=== PATIENT | male | born 1950 | race Caucasian/White ===

== ENCOUNTER 2018-10-20 12:42 | Inpatient (IN) | payer MEDICARE, MEDICAID ==
[~2018-10-20] VITALS: Ht 172.7 cm; Wt 124.9 kg
[~2018-10-20 12:42] MED LIST: AMOX/K CLAV875 M1 PO; AMOXICILLIN500 MG PO; ASPIRIN EC81 MG PO; FLEXERIL5 M1 PO; GABAPENTIN300 MG PO; GLIPIZIDE5 MG PO; LEVAQUIN750 MG PO; LIPITOR10 MG PO; LORTAB 10-325 M1 TAB PO; LOTENSIN10 MG PO; LOTENSIN20 MG OR; NAPROSYN500 MG OR; PROCARDIA XL30 MG PO; ULTRAM50 M1 PO; ULTRAM50 MG PO
[2018-10-20] MEDS ORDERED: NIFEDIPINE30 MG PO (12:54)
[2018-10-20] MEDS ORDERED: DIGOXIN0.125 MG PO (12:54)
[2018-10-20] MEDS ORDERED: METOPROL TAR25 MG PO (12:55)
[2018-10-20] MEDS ORDERED: ELIQUIS5 MG PO (12:55)
[2018-10-20] MEDS ORDERED: LYRICA25 MG PO (12:55)
[2018-10-20 13:16] LABS: IMMATURE GRANULOCYTES 1.3 % (0.0-5.0); MEAN CELL VOLUME 91.3 fL CALC (80.0-100.0); MEAN CORPUSCULAR HGB 30.8 pG CALC (26.0-32.0); MEAN CORPUSCULAR HGB CONC 33.7 g/L CALC (32.0-36.0); NEUT# 8.04 thou/uL (1.82-7.42); RED BLOOD COUNT 4.03 mill/uL (4.70-6.10); RED CELL DISTRI WIDTH 13.4 % (11.5-15.5)
[2018-10-20 13:30] LABS: ALBUMIN 3.8 g/dL (3.2-5.0); BILIRUBIN, TOTAL 0.8 mg/dL (0.0-1.4); TOTAL PROTEIN 7.5 g/dL (6.3-8.2)
[2018-10-20 13:38] LABS: CREATININE 2.2 mg/dL (0.7-1.3); HEMATOCRIT 36.8 % (39.0-50.0); HEMOGLOBIN 12.4 g/dl (14.0-18.0); POTASSIUM 5.2 mmol/l (3.5-5.1)
[2018-10-20 13:40] LABS: INFLUENZA A NONE DETECTED (NONE DETECT); INFLUENZA B NONE DETECTED (NONE DETECT)
[2018-10-20 13:42] LABS: URINE BILIRUBIN - DIPSTICK NEGATIVE (NEGATIVE); URINE BLOOD DIPSTICK SMALL (NEGATIVE); URINE COLOR YELLOW; URINE GLUCOSE - DIPSTICK NEGATIVE (NEGATIVE); URINE KETONE NEGATIVE (NEGATIVE); URINE PROTEIN - DIPSTICK 30 mg/dL (NEG-TRACE)
[2018-10-20 13:43] LABS: URINE CLARITY HAZY; URINE LEUK ESTERASE SMALL (NEGATIVE); URINE NITRITE - DIPSTICK POSITIVE (Negative)
[2018-10-20 13:44] LABS: URINE EPITHELIAL CELLS FEW EPI/hpf (0-FEW)
[2018-10-20 13:45] LABS: URINE BACTERIA MANY hpf
[2018-10-20 14:13] LABS: BARBITURATES NEGATIVE (NEGATIVE); COCAINE NEGATIVE (NEGATIVE); METHADONE NEGATIVE (NEGATIVE); OXCYCODONE NEGATIVE (NEGATIVE); TETRAHYDROCANNABIONOL NEGATIVE (NEGATIVE); TRICYLIC ANTIDEPRESSANTS NEGATIVE (NEGATIVE)
[2018-10-20 15:24] VITALS: BP 106/61
[2018-10-20 19:14] VITALS: BP 90/62
[2018-10-21] VITALS (7 sets, daily range): BP systolic 84–112; BP diastolic 40–71
[2018-10-21 05:10] LABS: HEMATOCRIT 34.3 % (39.0-50.0); MEAN CELL VOLUME 94.5 fL CALC (80.0-100.0); MEAN CORPUSCULAR HGB 30.3 pG CALC (26.0-32.0); MEAN CORPUSCULAR HGB CONC 32.1 g/L CALC (32.0-36.0); NEUT# 6.9 thou/uL (1.82-7.42); RED BLOOD COUNT 3.63 mill/uL (4.70-6.10); RED CELL DISTRI WIDTH 13.9 % (11.5-15.5)
[2018-10-21 05:22] LABS: BILIRUBIN, TOTAL 0.5 mg/dL (0.0-1.4); CREATININE 2.3 mg/dL (0.7-1.3)
[2018-10-21 05:28] LABS: ALBUMIN 2.9 g/dL (3.2-5.0); POTASSIUM 5.6 mmol/l (3.5-5.1); TOTAL PROTEIN 5.9 g/dL (6.3-8.2)
[2018-10-21 21:50] LABS: POTASSIUM 4.8 mmol/l (3.5-5.1)
[2018-10-22 00:23] VITALS: BP 115/71
[2018-10-22 05:02] VITALS: BP 95/57
[2018-10-22 06:46] LABS: HEMATOCRIT 30.6 % (39.0-50.0); HEMOGLOBIN 10.1 g/dl (14.0-18.0); IMMATURE GRANULOCYTES 0.9 % (0.0-5.0); MEAN CELL VOLUME 93.9 fL CALC (80.0-100.0); NEUT# 2.37 thou/uL (1.82-7.42); RED BLOOD COUNT 3.26 mill/uL (4.70-6.10); RED CELL DISTRI WIDTH 13.8 % (11.5-15.5)
[2018-10-22 06:53] LABS: CREATININE 1.6 mg/dL (0.7-1.3); POTASSIUM 4.8 mmol/l (3.5-5.1)
[2018-10-22 08:00] VITALS: BP 82/45
[2018-10-22 15:58] VITALS: BP 111/62
[2018-10-22 20:05] VITALS: BP 128/66
[2018-10-23] VITALS (7 sets, daily range): BP systolic 107–165; BP diastolic 58–82
[2018-10-23 05:00] LABS: HEMATOCRIT 34.6 % (39.0-50.0); HEMOGLOBIN 11.2 g/dl (14.0-18.0); IMMATURE GRANULOCYTES 0.9 % (0.0-5.0); MEAN CELL VOLUME 94.3 fL CALC (80.0-100.0); MEAN CORPUSCULAR HGB 30.5 pG CALC (26.0-32.0); MEAN CORPUSCULAR HGB CONC 32.4 g/L CALC (32.0-36.0); NEUT# 3.37 thou/uL (1.82-7.42); RED BLOOD COUNT 3.67 mill/uL (4.70-6.10); RED CELL DISTRI WIDTH 13.5 % (11.5-15.5)
[2018-10-23 05:12] LABS: ANION GAP 10 (6-22 (CALC)); BUN 20 mg/dL (8-23); BUN/CREATININE RATIO 15 (12-20 (CALC)); CARBON DIOXIDE 24 mmol/l (22-30); CHLORIDE 109 mmol/l (95-108); CREATININE 1.3 mg/dL (0.7-1.3); GFR 55 ML/MIN (>=60 (CALC)); GFR FOR AFR.AMER. > 60 ML/MIN (>=60 (CALC)); POTASSIUM 4.9 mmol/l (3.5-5.1); SODIUM 138 mmol/l (137-146)
[2018-10-24 00:36] VITALS: BP 120/64
[2018-10-24 05:31] VITALS: BP 122/63
[2018-10-24 09:13] VITALS: BP 132/86
[2018-10-24 11:00] VITALS: BP 138/83
[2018-10-24 15:36] VITALS: BP 125/65
[2018-10-24 19:58] VITALS: BP 126/67
[2018-10-25] VITALS: BP 124/73
[2018-10-25 05:31] VITALS: BP 120/64
[2018-10-25 05:32] LABS: HEMATOCRIT 32.3 % (39.0-50.0); HEMOGLOBIN 10.4 g/dl (14.0-18.0); IMMATURE GRANULOCYTES 0.8 % (0.0-5.0); MEAN CELL VOLUME 94.2 fL CALC (80.0-100.0); MEAN CORPUSCULAR HGB 30.3 pG CALC (26.0-32.0); MEAN CORPUSCULAR HGB CONC 32.2 g/L CALC (32.0-36.0); NEUT# 4.21 thou/uL (1.82-7.42); RED BLOOD COUNT 3.43 mill/uL (4.70-6.10); RED CELL DISTRI WIDTH 13.2 % (11.5-15.5)
[2018-10-25 05:59] LABS: ANION GAP 10 (6-22 (CALC)); BUN 12 mg/dL (8-23); BUN/CREATININE RATIO 12 (12-20 (CALC)); CARBON DIOXIDE 26 mmol/l (22-30); CHLORIDE 108 mmol/l (95-108); GFR > 60 ML/MIN (>=60 (CALC)); GFR FOR AFR.AMER. > 60 ML/MIN (>=60 (CALC)); MAGNESIUM 1.7 mg/dL (1.6-2.3); POTASSIUM 4.9 mmol/l (3.5-5.1); SODIUM 138 mmol/l (137-146)
[2018-10-25 08:10] VITALS: BP 151/67
[2018-10-25 11:00] VITALS: BP 136/67
[2018-10-25 16:10] VITALS: BP 131/59
[2018-10-25 19:59] VITALS: BP 124/53
[2018-10-26 00:10] VITALS: BP 107/55
[2018-10-26 05:06] VITALS: BP 139/74
[2018-10-26 05:18] LABS: HEMATOCRIT 34.4 % (39.0-50.0); HEMOGLOBIN 11.5 g/dl (14.0-18.0); IMMATURE GRANULOCYTES 0.6 % (0.0-5.0); MEAN CELL VOLUME 92.2 fL CALC (80.0-100.0); MEAN CORPUSCULAR HGB 30.8 pG CALC (26.0-32.0); MEAN CORPUSCULAR HGB CONC 33.4 g/L CALC (32.0-36.0); NEUT# 5.73 thou/uL (1.82-7.42); RED BLOOD COUNT 3.73 mill/uL (4.70-6.10)
[2018-10-26 05:39] LABS: ALKALINE PHOSPHATASE 72 u/l (38-126); ANION GAP 11 (6-22 (CALC)); BILIRUBIN, TOTAL 0.3 mg/dL (0.0-1.4); BUN 13 mg/dL (8-23); BUN/CREATININE RATIO 12 (12-20 (CALC)); CARBON DIOXIDE 28 mmol/l (22-30); CHLORIDE 105 mmol/l (95-108); CREATININE 1.1 mg/dL (0.7-1.3); GFR > 60 ML/MIN (>=60 (CALC)); GFR FOR AFR.AMER. > 60 ML/MIN (>=60 (CALC)); MAGNESIUM 1.6 mg/dL (1.6-2.3); SGOT/AST 27 u/l (19-48); SODIUM 140 mmol/l (137-146); TOTAL PROTEIN 6.3 g/dL (6.3-8.2)
[2018-10-26 08:11] VITALS: BP 140/63
[2018-10-26 11:25] VITALS: BP 126/61
[2018-10-26] MEDS ORDERED: IPRATROPIU0.5 MG/3 M IN (12:42)
[2018-10-26] MEDS ORDERED: PANTOPRAZOLE SO40 M1 PO (12:42)
[2018-10-26] MEDS ORDERED: ROCEPHIN 2 GM2 GM IV (12:44)
== END 2018-10-26 15:23 | DRG 871 ==
LOC: ED 12:42 → ED-I 14:00 → ED 14:16 → MS2 14:17
PROVIDERS: Emergency Medicine; Internal Medicine Nephrology; Nurse Practitioner Family; ADMIT Internal Medicine; ATTEND Internal Medicine
DX: A41.51 Sepsis due to Escherichia coli [E. coli] (principal); J18.9 Pneumonia, unspecified organism; J44.1 Chronic obstructive pulmonary disease with (acute) exacerbation; N39.0 Urinary tract infection, site not specified; N17.9 Acute kidney failure, unspecified; Z68.41 Body mass index [BMI] 40.0-44.9, adult; E87.1 Hypo-osmolality and hyponatremia; J44.0 Chronic obstructive pulmonary disease with (acute) lower respiratory infection; I12.9 Hypertensive chronic kidney disease with stage 1 through stage 4 chronic kidney disease, or unspecified chronic kidney disease; N18.3 Chronic kidney disease, stage 3 (moderate); E11.22 Type 2 diabetes mellitus with diabetic chronic kidney disease; E11.42 Type 2 diabetes mellitus with diabetic polyneuropathy; E86.0 Dehydration; E78.5 Hyperlipidemia, unspecified; I25.10 Atherosclerotic heart disease of native coronary artery without angina pectoris; E66.9 Obesity, unspecified; F10.10 Alcohol abuse, uncomplicated; E87.5 Hyperkalemia; D64.9 Anemia, unspecified; E83.42 Hypomagnesemia; F17.210 Nicotine dependence, cigarettes, uncomplicated; G47.33 Obstructive sleep apnea (adult) (pediatric); F15.10 Other stimulant abuse, uncomplicated; Z99.81 Dependence on supplemental oxygen; Z95.5 Presence of coronary angioplasty implant and graft
CPT/HCPCS: G0378; J3370; J3475; Q9967

== ENCOUNTER 2020-12-19 14:39 | Inpatient (IN) | payer MEDICARE, MEDICAID ==
[~2020-12-19] VITALS: Ht 172.7 cm; Wt 101.4 kg
[~2020-12-19 14:39] MED LIST changes: +DIGOXIN0.125 MG PO; +ELIQUIS5 MG PO; +IPRATROPIU0.5 MG/3 M IN; +LYRICA25 MG PO; +METOPROL TAR25 MG PO; +NIFEDIPINE30 MG PO; +PANTOPRAZOLE SO40 M1 PO; +ROCEPHIN 2 GM2 GM IV
--- NOTE | 2020-12-19 14:44 | NUR ---
PATIENT TO ROOM VIA EMS AND PHYSICIAN NOTIFIED OF PATIENT STATUS
--- NOTE | 2020-12-19 15:42 | NUR ---
NO CHANGE RESTING
[2020-12-19 15:53] LABS: HEMATOCRIT 46.5 % (39.0-50.0); HEMOGLOBIN 15.6 g/dl (14.0-18.0); IMMATURE GRANULOCYTES 4.1 % (0.0-5.0); MEAN CELL VOLUME 88.1 fL CALC (80.0-100.0); MEAN CORPUSCULAR HGB 29.5 pG CALC (26.0-32.0); MEAN CORPUSCULAR HGB CONC 33.5 g/dL CAL (32.0-36.0); NEUT# 16.79 thou/uL (1.82-7.42); RED BLOOD COUNT 5.28 mill/uL (4.70-6.10); RED CELL DISTRI WIDTH 13.9 % (11.5-15.5)
[2020-12-19 16:15] LABS: ALBUMIN 3.7 g/dL (3.2-5.0); POTASSIUM 4.5 mmol/l (3.5-5.1); TOTAL PROTEIN 7.7 g/dL (6.3-8.2)
[2020-12-19 16:19] LABS: ACT PARTIAL THROMBO TIME 31.1 SECONDS (20.0-32.5); INTERNATIONAL NORMALIZED RATIO 1.2 RATIO (0.7-1.3); PROTHROMBIN TIME 12.2 SECONDS (9.0-12.5)
[2020-12-19 16:35] LABS: BILIRUBIN, TOTAL 2.4 mg/dL (0.0-1.4); MAGNESIUM 2.1 mg/dL (1.6-2.3)
--- NOTE | 2020-12-19 16:40 | NUR ---
Reassessment of patient completed. No distress noted.
--- NOTE | 2020-12-19 17:30 | NUR ---
Reassessment of patient completed. No distress noted. GARCIA IS OPERATING EXPECTED
[2020-12-19 17:43] LABS: URINE BLOOD DIPSTICK LARGE (NEGATIVE); URINE GLUCOSE - DIPSTICK NEGATIVE (NEGATIVE); URINE KETONE NEGATIVE (NEGATIVE); URINE LEUK ESTERASE NEGATIVE (NEGATIVE); URINE NITRITE - DIPSTICK NEGATIVE (Negative); URINE PH 5.5 (4.5-8.0); URINE PROTEIN - DIPSTICK 100 mg/dL (NEG-TRACE); URINE SPECIFIC GRAVITY >=1.030
[2020-12-19 17:45] LABS: URINE BILIRUBIN - DIPSTICK SMALL (NEGATIVE); URINE COLOR DK. YELLOW
[2020-12-19] MEDS ORDERED: BENAZEPRIL HYDR20 MG PO (17:52)
[2020-12-19] MEDS ORDERED: ATORVASTATIN CA40 MG PO (17:52)
[2020-12-19] MEDS ORDERED: GLIPIZIDE5 M2 PO (17:52)
[2020-12-19] MEDS ORDERED: NIFEDIPINE ER30 M1 PO (17:53)
[2020-12-19] MEDS ORDERED: LEVOCETIRIZINE D5 MG PO (17:53)
[2020-12-19 17:58] LABS: URINE AMORPH SEDIMENT MANY hpf (NONE-FER)
--- NOTE | 2020-12-19 18:47 | NUR ---
Reassessment of patient completed. No distress noted.
--- NOTE | 2020-12-19 19:09 | NUR ---
REPORTGIVEN TO ANNE-MARIE BURGER
--- NOTE | 2020-12-19 22:00 | NUR ---
PT GIVEN JELLO AND WATER.
--- NOTE | 2020-12-19 22:30 | NUR ---
PT WILL BE AN ER HOLD. TRANSFERRED FROM STRETCHER TO HOSPITAL BED FOR COMFORT.
[2020-12-20 05:56] LABS: HEMOGLOBIN 13.8 g/dl (14.0-18.0); MEAN CORPUSCULAR HGB 30.4 pG CALC (26.0-32.0); MEAN CORPUSCULAR HGB CONC 34.2 g/dL CAL (32.0-36.0); NEUT# 12.2 thou/uL (1.82-7.42); RED BLOOD COUNT 4.54 mill/uL (4.70-6.10); RED CELL DISTRI WIDTH 14.1 % (11.5-15.5)
[2020-12-20 06:03] LABS: HEMATOCRIT 40.4 % (39.0-50.0); IMMATURE GRANULOCYTES 7.2 % (0.0-5.0)
[2020-12-20 06:10] LABS: BILIRUBIN, TOTAL 2.3 mg/dL (0.0-1.4); CREATININE 3.9 mg/dL (0.7-1.3); MAGNESIUM 2.1 mg/dL (1.6-2.3); POTASSIUM 3.9 mmol/l (3.5-5.1); TOTAL PROTEIN 6.4 g/dL (6.3-8.2)
[2020-12-20 06:13] LABS: CPK 2698 u/l (52-200)
[2020-12-20 06:14] LABS: CHOLESTEROL HDL RATIO 5.7 (<4.4 (CALC))
[2020-12-20 06:30] VITALS: BP 116/59
[2020-12-20 06:36] LABS: MYOGLOBIN 5056 ng/mL (0 - 121)
--- NOTE | 2020-12-20 07:35 | NUR ---
PT RESTING IN BED OFFERS NO COMAPLINTS B/P STABLE VS WNL, A FEBRILE, PT ADMIST TO FEELING WEAK STILL, ENCOAURAGED TO MOVE AND REPOSITION IN BED, CALL MT CASTORENA
--- NOTE | 2020-12-20 09:54 | NUR ---
S: HÉCTOR ANDRE is a 70 M who presents with cellulitis. He has a history of arthritis, lung disease, diabetes, hypertension, and COPD. All medications in patient's chart were reviewed. O: VS: BP 116/59 mmHg, P 104 bpm, RR 24 breaths/min, T 96.4 F W 85 kg, HT 68 in, Scr 3.9 mg/dl, CrCl 21.2 ml/min A: Blood culture is pending. P: Patient is on Zosyn 2.25 g Q6H. Vancomycin ordered for pharmacy to dose. Start Vancomycin 1250 mg IV Q48H. Vancomycin trough is drawn before the 4th dose on 12/23/20 @1530. Vancomycin goal trough is between 10-15 mcg/ml. Pharmacy will follow and or advise on antibiotics use as needed.
--- NOTE | 2020-12-20 09:54 | NUR ---
PT WOULD BENEFIT FROM PT EVALUATION IF MEDICAL AGREES.
--- NOTE | 2020-12-20 10:30 | NUR ---
PT DECLINED AM MEAL STILL DROWSY THIS AM, CALL MT CORRIGAN REACH AND EASILY VISIBLE FROM NURSES STATION FOR SAFETY
--- NOTE | 2020-12-20 11:22 | NUR ---
PT ASSISTED TO SITTING UP IN BED, STATES FEELING A LITTLE BETTER THIS AM AWAER OF CONTINUED HOLD IN ER WITHNO COMPLAINTS VOICED, WILL CONTINUE TO MONITOR,.
--- NOTE | 2020-12-20 12:24 | NUR ---
REPORT CALLED TO MARTINE BURGER ON MED SURG
--- NOTE | 2020-12-20 12:44 | NUR ---
PT ARRIVED TO [facility]IT AT 1244 VIA BED WITH ER STAFF; VERY DROWSY AND ORIENTED X 3. PT OPENS EYES AND RESPONDS, BUT QUICKLY FALLS ASLEEP AND NEEDS TACTILE STIMULI TO AROUSE; LEFT SIDE LEANING IN SEMI FOWLERS. SLOW SLURRED SPEECH DUE TO DROWSINESS; PERRLA; EQUAL METAL BOX MAKER; NO NOTED FACIAL DROOPING. PT HAS LIMITED MOBILITY DUE TO HX OF FRACTURED JOINTS; HAS PAIN WITH MOVEMENT TO SHOULDERS AND HIPS; PARTICIPATES IN ASSESSMENT TO THE BEST OF HIS ABILITY. ARMS DO NOT DRIFT; BLE FALL TO BED WITHOUT RESISTANCE. RESPIRATIONS EVEN AND UNLABORED ON OXYGEN 2L NC WHICH HE REPORTS HE WEARS AT HOME ALL OF THE TIME. REPORTS INCREASED FATIGUE AND INCREASE IN FALLS OVER THE LAST WEEK OR 2. SKIN IS JAUNDICE; BLACK SCABBED ABRASION TO RIGHT HAND WITH REDNESS AND WARMTH SURROUNDING AREA; REDNESS AND MOISTURE UNDER LEFT ABDOMINAL FOLD; LLL RED AND HOT WITH BLISTERS WITH 2+ EDEMA; RLE RED WITH WARMTH AND TRACE EDEMA; ARE TO LEFT BUTT NOT OPEN, SKIN INTACT. GARCIA CATHETER DRAINING YELLOW URINE WITH SEDIMENT; INCONTINENT OF LOOSE DARK BROWN STOOL. TELE ON. SAFETY MEASURES IN PLACE. CALL LIGHT WITHIN REACH.
--- NOTE | 2020-12-20 12:50 | NUR ---
PT TRASNPORTED TO MED SURG VIA BED WITH TELE IN PLACE, RECIEVING NURSE AT BEDSIDE ON ARRIVAL.
--- NOTE | 2020-12-20 12:50 | NUR ---
PT TRASNPORTED TO MED SURG VIA BED WTIH TELE IN PLACE AND RECIEVING NURSE IN ROOM ON ARRIVAL, ALL BELONGINGS WITH PT.
[2020-12-20 13:22] VITALS: BP 100/64
--- NOTE | 2020-12-20 14:45 | NUR ---
IV FLUIDS INITIATED AT 125 ML/HR; 18G EMS IV SITE TO RW APPEARS HEALTHY AND FLUSHES. ZOSYN ALSO INFUSING.
--- NOTE | 2020-12-20 14:56 | NUR ---
DR. WATSON AT BEDSIDE FOR EVAL.
[2020-12-20 15:30] VITALS: BP 108/64
[2020-12-20 20:00] VITALS: BP 101/61
--- NOTE | 2020-12-20 20:08 | NUR ---
PT AWAKE, ASSESSMENT COMPLETED AT THIS TIME. PT IS ASKING FOR MORE WATER, PROVIDED AT THIS TIME. ASSESSMENT COMPLETED ALSO AT THIS TIME. NO S/O DISTRESS NOTED. EXTRA BLANKET ALSO PROVIDED PER REQUEST.
--- NOTE | 2020-12-20 22:24 | NUR ---
CONSENT RECEIVED BY PT FOR PRBC 2UN TO BE TRANSFUSED. PT WAS LOC X3, SHE WAS ABLE TO TELL ME NAME,, YEAR AND NAME OF HOSPITAL SHE WAS IN.
--- NOTE | 2020-12-20 22:48 | NUR ---
MEDICATIONS ADMINISTERED AT THIS TIME. PT DENIES ANY OTHER NEEDS. HE IS AWAKE WATCHING TV WITH LIGHTS ON.
[2020-12-21] VITALS: BP 114/65
--- NOTE | 2020-12-21 01:00 | NUR ---
PT WAS HEARD YELLING "I NEED WATER" "I NEED WATER" UPON ENTERING THE ROOM CALL LIGHT WAS ON PTS LAP VISIBLE. PT WAS HOLDING OUT HIS PITCHER WAVING IT, IT WAS EMPTY. WATER WAS PROVIDED TO PT AND HE WAS REORIENTED TO USE OF CALL SYSTEM. THIS IS THE 3RD PITCHER OF WATER PROVIDED TO PT THIS SHIFT SO FAR. NO OTHER S/O DISTRESS AT THIS TIME AND PT DENIES ANY OTHER NEEDS.
--- NOTE | 2020-12-21 02:00 | NUR ---
IVF REPLENISHED, PT WAS SLEEPING.
--- NOTE | 2020-12-21 03:36 | NUR ---
PT IS SLEEPING AT THIS TIME. NO S/O DISTRESS NOTED. CALL LIGHT ACROSS PT ABD.
[2020-12-21 04:00] VITALS: BP 95/64
[2020-12-21 05:43] LABS: POTASSIUM 3.5 mmol/l (3.5-5.1)
[2020-12-21 05:49] LABS: CREATININE 2.8 mg/dL (0.7-1.3)
[2020-12-21 09:35] VITALS: BP 104/71
--- NOTE | 2020-12-21 10:00 | NUR ---
ASSESSMENT DONE. PATIENT IS A&O X3. PATIENT DENIES PAIN AT THIS TIME. GARCIA IS PATENT WITH MARK URINE. LUNGS SOUND/DIMINISHED. IVF INFUSING WELL. TELE IN PLACE. O2 AT 2L VIA NC. SWAPNA REDNESS IN LEGS AND BLISTERS. +2 EDEMA SWAPNA LEGS PATIENT DENIES ANY NEEDS AT THIS TIME. SAFETY PRECAUTIONS REINFORCED AND CALL LIGHT IN REACH.
[2020-12-21 11:00] VITALS: BP 113/65
--- NOTE | 2020-12-21 12:00 | NUR ---
PATIENT IS RESTING IN BED WITH NO S/S OF DISTRESS NOTED. PATIENT IS DROWSY. PAIN DENIES PAIN AT THIS TIME. CALL LIGHT IN REACH.
--- NOTE | 2020-12-21 12:00 | NUR ---
PRELIMINARY RESULTS CALLED TO DR ZULETA, PATIENT IS ON VANCO AND ZOSYN NO ACTION NEEDED AT THIS TIME.
--- NOTE | 2020-12-21 15:30 | NUR ---
PREPARER SAMPLES AND REPAIRS IN ROOM DOING NAM CARE ON PATIENT. REDNESS IN NAM AREA AND BUTTOCKS. PICTURE TAKE FOR BUTTOCKS FOR SKIN TEAR AND DUODERM APPLIED. PATIENT DENIES ANY OTHER NEEDS AT THIS TIME. CALL LIGHT IN REACH.
[2020-12-21 16:56] VITALS: BP 123/64
[2020-12-21 19:32] VITALS: BP 116/62
--- NOTE | 2020-12-21 21:00 | NUR ---
PT IN BED WITH EYES OPEN AND ABLE TO MAKE NEEDS KNOWN WHEN ASKED. IV SITE CHANGED DUE TO EMS SITE. PT HAS REDNESS TO BILATERAL LOWER EXTREMITIES WITH BLISTERS AND SLOUGH NOTED TO RIGHT LOWER EXTREMITY. GARCIA CATH IN PLACE AND DRAINING MARK COLORED AND CLOUDY URINE NOTED. REPOSITION AND TOLERATED WELL. ON FULL LIQUID DIET AND TOLERATED WELL. HOB ELEVATED AND BED IN LOW POSITION. WILL CONTINUE TO OBSERVE.
[2020-12-22] VITALS: BP 126/74
[2020-12-22 03:31] VITALS: BP 119/63
[2020-12-22 05:16] LABS: HEMATOCRIT 38.7 % (39.0-50.0); HEMOGLOBIN 12.4 g/dl (14.0-18.0); MEAN CELL VOLUME 91.3 fL CALC (80.0-100.0); MEAN CORPUSCULAR HGB 29.2 pG CALC (26.0-32.0); RED BLOOD COUNT 4.24 mill/uL (4.70-6.10); RED CELL DISTRI WIDTH 14.7 % (11.5-15.5)
[2020-12-22 05:36] LABS: POTASSIUM 3.6 mmol/l (3.5-5.1); TOTAL PROTEIN 5.2 g/dL (6.3-8.2)
[2020-12-22 05:38] LABS: ALBUMIN 2.1 g/dL (3.2-5.0)
--- NOTE | 2020-12-22 07:05 | NUR ---
REPORT RECEIVED FROM TAO NEGRETE.
--- NOTE | 2020-12-22 09:00 | NUR ---
PT RESTING IN SEMI FOWLERS POSITION, ALERT BUT CONFUSED;VS OBTAINED AND ASSESSMENT COMPLETED;PT DENIES ANY CURRENT PAIN OR DISCOMFORTS,PAIN SCALE AND REPORTING EDUCATED;RESPIRATIONS SHALLOW ON O2 @ 2L VIA NC,PT IS HOME O2 DEPENDENT;WHEEZY/DIMINISHED LUNG SOUNDS NOTED;ABDOMEN DISTENDED/SOFT ON PALPATION AND ACTIVE IN ALL 4 QUADRANTS;GARCIA CATHETER PATENT DRAINING YELLOW URINE TO GRAVITY WITH EASE, LEG STRAP PLACED TO LEFT THIGH;WEAK PEDAL PULSE,WITH +2 EDEMA TO BLE;CELLULITIS TO BLE NOTED AND LARGE BLISTER TO LEFT CALF;ENCOURAGED ELEVATION OF BLE;TELE MONITORING IN PLACE;#18G TO RFA INFUSING NS WITH EASE PER ORDER,SITE APPEARS HEALTHY;ACCUCHECK 137, NO COVERAGE NEEDED;PT DENIES ANY ADDITIONAL NEEDS AT THIS TIME AND IS ENCOURAGED TO CALL FOR ASSISTANCE IF NEEDED;FALL PRECAUTIONS IN PLACE WITH BED IN THE LOWEST POSITION AND BED ALARM ON FOR SAFETY;CALL LIGHT IN REACH;WILL CONTINUE TO MONITOR
[2020-12-22 09:01] VITALS: BP 106/60
--- NOTE | 2020-12-22 10:04 | NUR ---
AT BEDSIDE DISCUSSING POC.
[2020-12-22 11:42] VITALS: BP 127/73
--- NOTE | 2020-12-22 12:20 | NUR ---
PT RESTING IN SEMI FOWLERS POSITION;RESPIRATIONS REMAIN EVEN AND UNLABORED ON O2 @ 2L VIA NC;PT DENIES ANY CURRENT PAIN OR DISCOMFORTS;TELE MONITORING IN PLACE;IV SITE TO RFA REMAINS PATENT AND ABX STARTED AT THIS TIME;ACCUCHECK 170, PT COVERED WITH SLIDING SCALE INSULIN PER ORDER;GARCIA CATHETER REMAINS PATENT DRAINING TO GRAVITY WITH EASE;ENCOURAGED PT TO CALL FOR ASSISTANCE IF NEEDED;CALL LIGHT IN REACH WITH BED ALARM ON FOR SAFETY;WILL CONTINUE TO MONITOR
--- NOTE | 2020-12-22 16:20 | NUR ---
PT RESTING IN SEMI FOWLERS POSITION;RESPIRATIONS EVEN AND UNLABORED ON O2 @ 2L VIA NC;PT DENIES ANY CURRENT PAIN OR DISCOMFORTS;TELE MONITORING IN PLACE;IV SITE TO RFA PATENT AND ABX STARTED AT THIS TIME;GARCIA CATHETER REMAINS PATENT DRAINING TO GRAVITY WITH EASE;PT DENIES ANY ADDITIONAL NEEDS;ENCOURAGED TO CALL FOR ASSISTANCE IF NEEDED;FALL PRECAUTIONS REMAIN IN PLACE WITH BED IN THE LOWEST POSITION AND BED ALARM ON FOR SAFETY;CALL LIGHT IN REACH;WILL CONTINUE TO MONITOR
[2020-12-22 16:50] VITALS: BP 137/62
[2020-12-22 19:00] VITALS: BP 143/77
--- NOTE | 2020-12-22 20:00 | NUR ---
RECEIVED REPORT FOR THIS PT AND IN BED WITH EYES OPEN AND ABLE TO MAKE NEEDS KNOWN WHEN ASKED. ALERT AND ORIENTED X 1. OXYGEN THERAPY IN PLACE AND NORMAL SALINE AT 100 ML/HR. CALL LIGHT WITHIN REACH. WILL CONTINUE TO OBSERVE.
[2020-12-23 00:07] VITALS: BP 130/75
--- NOTE | 2020-12-23 01:44 | NUR ---
PT IN BED WITH EYES CLOSED. NO S/S OF DISTRESS. PT TOOK OXYGEN OF O2 SAY DOWN 88%. OXYGEN THERAPY REAPPLIED AND O2 SAT 93%. CONTINUES ON NORMAL sALINE AT 100ML/HR AND TOLERATING WELL. WHEEZING NOTED IN UPPER LUNG FERREIRA. HOB ELEVATED AND CALL LIGHT WITHIN REACH. ON ABT ZOSYN WITH NO ADVERSE SIDE EFFECTS. CALL LIGHT WITHIN REACH. WILL CONTINUE TO OBSERVE.
--- NOTE | 2020-12-23 03:00 | NUR ---
PT IN BED WITH EYES CLOSED. NO RESPIRATORY DISTRESS NOTED. OXYGEN THERAPY IN PLACE AND RUNNING AT 2LNC. GARCIA DRAINING MARK COLORED CLOUDY URINE WITH ODOR. CONTINUES ON IV ABT THERAPY ZOSYN WITH NO ADVERSE EFFECTS NOTED. REPOSITIONED IN BED WITH AND INCONTINENCE CARE PROVODED. HOB ELEVAATED. CONTINUES TO HAVE BLISTERED AREA TO BILAT LOWER EXTREMITIES. WOUND CONSULT ORDERED. WILL CONTINUE TO OBSERVE
[2020-12-23 04:30] VITALS: BP 124/71
[2020-12-23 05:33] LABS: HEMATOCRIT 40.2 % (39.0-50.0); HEMOGLOBIN 12.4 g/dl (14.0-18.0); MEAN CELL VOLUME 93.5 fL CALC (80.0-100.0); MEAN CORPUSCULAR HGB 28.8 pG CALC (26.0-32.0); MEAN CORPUSCULAR HGB CONC 30.8 g/dL CAL (32.0-36.0); RED BLOOD COUNT 4.3 mill/uL (4.70-6.10); RED CELL DISTRI WIDTH 15.2 % (11.5-15.5)
[2020-12-23 06:05] LABS: BILIRUBIN, TOTAL 0.8 mg/dL (0.0-1.4); CREATININE 1.6 mg/dL (0.7-1.3); POTASSIUM 3.8 mmol/l (3.5-5.1); TOTAL PROTEIN 5.4 g/dL (6.3-8.2)
[2020-12-23 08:20] VITALS: BP 149/82
--- NOTE | 2020-12-23 08:20 | NUR ---
ASSESSMENT IS COMPLETED: IV SITE IS FREE FROM REDNESS OR EDEMA. HR IS REG,PULSES ARE STRONG X4,A BD IS SOFT WITH ACTIVE BS. BREATH SOUNDS ARE WHEEZING AND DIMINIHSED. O2 @ 2LITERS WITH NC TELE MONITOR IN PLACE.
--- NOTE | 2020-12-23 10:26 | NUR ---
S: HÉCTOR ANDRE is a 70 M who presents with cellulitis. He has a history of arthritis, lung disease, diabetes, hypertension, and COPD. All medications in patient's chart were reviewed. O: Vancomycin trough of 9 received on 12/22/20. VS: BP 143/77 mmHg, P 100 bpm, RR 18 breaths per min, T 98.4 F W 101.4 kg, HT 68 in, Scr= 2.0 mg/dL, CrCl= 39.7 ml/min A: Aerobic blood culture shows growth of Stroptococcus pyogenes which is sensitive to penicillins and other beta lactams. Anaerobic blood culture is pending. P: Patient is on Zosyn 2.25 g Q6H. Vancomycin ordered for pharmacy to dose. Start Vancomycin 1 g IV Q24H. Vancomycin trough is drawn on 12/23/20 @ 1530. Vancomycin goal trough is between 10-15 mcg/ml. Pharmacy will follow and or advise on antibiotics use as needed.
[2020-12-23 10:32] VITALS: BP 144/84
[2020-12-23] MEDS ORDERED: AMOXICILLIN500 MG PO (11:29)
--- NOTE | 2020-12-23 12:15 | NUR ---
PT IS IN BED CONTINUES TO UNDRESS FROM HOSPITAL GOWN. IV SITE IS FREE FROM REDNESS OR EDEMA. CONTINUE TO OSBERVE AND MONITOR.
[2020-12-23 14:56] VITALS: BP 141/78
--- NOTE | 2020-12-23 15:38 | NUR ---
DR MENA IN TO VISIT WITH PT. VIA TELE CONFERENCE
--- NOTE | 2020-12-23 16:15 | NUR ---
PT IS LAYING IN BED WITH NO DISTRESS NOTED. WANTING TO EAT, IS ON A FULL LIQUID DIET. IV SITE IS FREE FROM REDNESS OR EDEMA CONITNUE TO OSBERVE AND MONITOR.
[2020-12-23 19:00] VITALS: BP 141/75
--- NOTE | 2020-12-23 20:00 | NUR ---
RECEIVED REPORT FROM NURSE MYERS, PATIENT RESTING IN BED, SINGING, WITH NS ON RFA G20 PATENT FLUSHES WELL, REMAINS ON TELE SR 97, LBM 12/23, BS 185, HOOKED TO O2 @ 2LPM VIA NC BREATHING SHALLOW, UNLABORED, WITH GARCIA CATHETER DRAINING YELLOW COLORED URINE, NOTED TO HAVE OPEN AREA ON LEFT MIR LEG IS RED, RT LEG APPEARS RED ALSO, HEPARIN ON HOLD PICC LINE PLACEMENT IN AM. CALL LIGHT AT REACH.
[2020-12-24] VITALS: BP 158/81
--- NOTE | 2020-12-24 | NUR ---
IV FOUND DISLODGE, CATHETER INTACT, NEW IV LINE G22 REINSERTED CALL LIGHT AT [facility].
[2020-12-24 04:31] VITALS: BP 142/82
--- NOTE | 2020-12-24 04:47 | NUR ---
PATIENT RESTING IN BED WITH EYES CLOSED, PATIENT WAS SINGING REMAINS ON O2 @ 2LPM VIA NC, EVEN RESPIRATION CALL LIGHT AT REACH.
[2020-12-24 07:06] LABS: HEMATOCRIT 43.5 % (39.0-50.0); HEMOGLOBIN 13.1 g/dl (14.0-18.0); MEAN CELL VOLUME 96.5 fL CALC (80.0-100.0); MEAN CORPUSCULAR HGB CONC 30.1 g/dL CAL (32.0-36.0); RED BLOOD COUNT 4.51 mill/uL (4.70-6.10); RED CELL DISTRI WIDTH 15.2 % (11.5-15.5)
[2020-12-24 07:32] LABS: ALBUMIN 2.4 g/dL (3.2-5.0); BILIRUBIN, TOTAL 0.6 mg/dL (0.0-1.4); CREATININE 1.5 mg/dL (0.7-1.3)
[2020-12-24 07:33] LABS: POTASSIUM 4.6 mmol/l (3.5-5.1); TOTAL PROTEIN 6.5 g/dL (6.3-8.2)
[2020-12-24 09:30] VITALS: BP 129/80
--- NOTE | 2020-12-24 09:30 | NUR ---
PT RETURNED FROM HAVING A PICC LINE PLACED. ASSESSMENT IS COMPLETED: BREATH SOUNDS ARE DIMINISHED AND WHEEZING , O2 @ 3LITERS WITH NC. ABD IS SOFT WITH ACTIVE BS. HR IS REG,PULSES ARE STRONG , BOTH LEGS CONTINUE TO BE RED, MINIMAL WEEPING NOTED.
[2020-12-24 11:36] VITALS: BP 144/76
--- NOTE | 2020-12-24 12:00 | NUR ---
PT IS RELAXING IN BED WITH NO DISRESS NOTED. IV SITE IS FREE FROM REDNESS OR EDMEA.
--- NOTE | 2020-12-24 12:57 | NUR ---
DR OSPINA IN TO SEE PT RE: FEET . PLANNING ON A SMALL DEBRIDEMENT
--- NOTE | 2020-12-24 13:03 | NUR ---
PT Note Patinr in semi-fowlers position as entered room. Pat had agreed to partake in therapy session as best as possible. Pat executed slight toe movements followed w/ active ankle pumps bilaterally. Passive range of motion to bilateral lower extremities to patient comfort. Patient in semi-fowlers positio, and Tray table and call cárdenas by patient side as exited room.
[2020-12-24 15:38] VITALS: BP 156/90
--- NOTE | 2020-12-24 16:00 | NUR ---
PT IS RELAXING IN BED WITH NO DISTRESS NOTED. IV SITE IS FREE FROM REDNESS OR EDEMA.
[2020-12-24 19:00] VITALS: BP 150/80
[2020-12-25] VITALS (8 sets, daily range): BP systolic 127–167; BP diastolic 70–97
[2020-12-25 06:19] LABS: HEMATOCRIT 38.8 % (39.0-50.0); MEAN CELL VOLUME 94.4 fL CALC (80.0-100.0); MEAN CORPUSCULAR HGB 29.2 pG CALC (26.0-32.0); MEAN CORPUSCULAR HGB CONC 30.9 g/dL CAL (32.0-36.0); RED BLOOD COUNT 4.11 mill/uL (4.70-6.10); RED CELL DISTRI WIDTH 14.8 % (11.5-15.5)
[2020-12-25 06:53] LABS: ALBUMIN 2.3 g/dL (3.2-5.0); BILIRUBIN, TOTAL 0.6 mg/dL (0.0-1.4); CREATININE 1.5 mg/dL (0.7-1.3); POTASSIUM 4.2 mmol/l (3.5-5.1); TOTAL PROTEIN 6.6 g/dL (6.3-8.2)
--- NOTE | 2020-12-25 07:30 | NUR ---
RECIEVED REPORT FROM CHAMP GUY. PT RESTING IN SEMI FOWLERS POSITION. NO SIGNS OF ANY PAINS OR DISTRESS. WILL CONTINUE TO MONITOR
--- NOTE | 2020-12-25 07:56 | NUR ---
PT WAS DISROBING THROUGHOUT SHIFT. DRSG REMAINS TO L MIR, NO STRIKE THROUGH NOTED. WOUND CULTURE REMAINS PENDING AT THIS TIME. RED SPONT TO BUTTOCKS REMIANS. PT TOLERATED SHIFT WELL, WILL MONITOR
--- NOTE | 2020-12-25 09:00 | NUR ---
PT RESTING IN SEMI FOWLERS POSITION. ASSESSMENT AND VITALS COMPLETED. BP 167/91, HR 92, O2 99% ON 2L NC. RESPIRATIONS ARE EVEN AND UNLABORED ON ROOM AIR. HEART RHYTHM NORMAL WITH TELE IN PLACE, SR PER ER MONITORING. BOWEL SOUNDS ACTIVE. RADIAL PULSES STRONG. PEDAL PULSES WEAK. DOUBLE LUMEN PICC IN GABY INFUSING WITH IVF PER ORDER, SITE APPEARS HEALTHY AND PATENT. #22G IN RIGHT HAND REMOVED WITH CATHATER STILL INTACT. PT INCONTIENT OF STOOL, BED BATH COMPLETED. STAGE 2 PRESSURE WOUND ON COCCYX, AQUAL BONNY APPLIED. PT DENIES OF ANY PAINS OR DISCOMFORTS AT THIS TIME. ALL SAFETY PRECAUTIONS ARE IN PLACE WITH CALL LIGHT IN REACH AND BED ALARM ACTIVATED. WILL CONTINUE TO MONITOR
--- NOTE | 2020-12-25 11:46 | NUR ---
PT NOTE Mr Marilyn supine as entered room, patient agreed to participate in therapy session. Patient unable to execute bed mobility independently, passive range of motion to bilateral lower extremities until patient tolerance(sensitive to touch),Slight hip/knee flexion, abduction followed w/ active ankle pumps and active toe movements. [facility] 6 ^ 6
--- NOTE | 2020-12-25 11:48 | NUR ---
PT RESTING IN SEMI FOWLERS POSITION. RESPIRATIONS ARE EVEN AND UNLABORED ON 2L NC. PT DENIES OF ANY PAINS OR DISCOMFORTS. GARCIA CATHATER IN PLACE, TUBING PATENT. ALL SAFETY PRECAUTIONS ARE IN PLACE.WILL CONTINUE TO MONITOR
--- NOTE | 2020-12-25 13:42 | NUR ---
REASSESSMENT OF BP RESULTING IN156/80, HR 97.
--- NOTE | 2020-12-25 16:59 | NUR ---
PT INCONT OF LARGE BM.CLASS C DRIVER ASSISTED WITH NAM CARE. RESPIRATIONS ARE EVEN AND UNLABORED ON 2L NC. IVF INFUSING WITH EASE, SITE APPEARS HEALTHY AND PATENT. PT DENEIS OF ANY PAINS OR DISCOMFORTS. GARCIA CATHATER IN PLACE, TUBING PATENT.PT DENIES OF ANY NEEDS AT THIS TIME.WILL CONTINUE TO MONITOR.
--- NOTE | 2020-12-25 23:29 | NUR ---
PT IS RESTING COMFRTABLY IN BED AT THIS TIME, IV REMAINS PATENT EVIDENCED BY SUCCESSFUL FLUSH OF NS. GARCIA REMAINS INTACT AND DRAINING TO GRAVITY, GARCIA BAG IS BLOW BLADDER LEVEL. SOME SEDIMENT NOTED, NO OCCLUSION RELATED TO SEDIMENT NOTED. LOOSE, WATERY, DARK BROWN STOOL NOTED. OPEN AREA TO COCCYX, BARRIER CREAM APPLIED. WILL CONTINUE TO MONITOR.
[2020-12-26 01:33] VITALS: BP 173/92
[2020-12-26 04:15] VITALS: BP 158/79
[2020-12-26 07:58] VITALS: BP 150/78
[2020-12-26] MEDS ORDERED: ROCEPHIN 1 GM1 GM IM (10:21)
[2020-12-26 11:01] VITALS: BP 176/75
--- NOTE | 2020-12-26 11:01 | NUR ---
PT NOTE Patien supine as entered room, patient agreed to particpate in therapy session. Patient executed toe movements, ankle pumps actively. Slight active knee flexion, mostly passive rang of motion into flexion and abduction. Supine>sit(MAX A) static seated balance on bedside x 30 seconds. Patient stated he was fatugued. SIT>supine (MOD A) for slow descent to a supine position. Tray table and call cárdenas by patient side as exited room. [facility] 6 score 7
[2020-12-26 16:00] VITALS: BP 164/77
--- NOTE | 2020-12-26 16:47 | NUR ---
PT LEAVES AT THIS TIME FOR [place] [facility]. [facility] TRANSPORT HERE TO BORING MACHINE OPERATOR PT. PT LEAVES IN STABLE CONDITION.
--- NOTE | 2020-12-26 17:17 | NUR ---
REPORT CALLED TO [facility], REPORT WAS TO NEHA.
[2020-12-26] MEDS ORDERED: ANORO ELLIPTA 61 AER IN (18:01)
[2020-12-26] MEDS ORDERED: LASIX20 MG PO (18:01)
== END 2020-12-26 16:50 | DRG 872 ==
LOC: ED 14:39 → ED-I 18:15 → ED 18:27 → ED-I 18:28 → MS2 12-20 11:48
PROVIDERS: Nurse Practitioner; Nurse Practitioner Family; ADMIT Internal Medicine; ATTEND Internal Medicine
PROC: 05HB33Z Insertion of Infusion Device into Right Basilic Vein, Percutaneous Approach (ICD-10-PCS; principal; 2020-12-24)
DX: A40.0 Sepsis due to streptococcus, group A (principal); L03.116 Cellulitis of left lower limb; M62.82 Rhabdomyolysis; N17.9 Acute kidney failure, unspecified; E87.1 Hypo-osmolality and hyponatremia; E87.2 Acidosis; L03.115 Cellulitis of right lower limb; I12.9 Hypertensive chronic kidney disease with stage 1 through stage 4 chronic kidney disease, or unspecified chronic kidney disease; E11.22 Type 2 diabetes mellitus with diabetic chronic kidney disease; N18.9 Chronic kidney disease, unspecified; I25.10 Atherosclerotic heart disease of native coronary artery without angina pectoris; J43.9 Emphysema, unspecified; E11.40 Type 2 diabetes mellitus with diabetic neuropathy, unspecified; E66.9 Obesity, unspecified; S81.812A Laceration without foreign body, left lower leg, initial encounter; S81.811A Laceration without foreign body, right lower leg, initial encounter; E78.5 Hyperlipidemia, unspecified; F10.10 Alcohol abuse, uncomplicated; R23.8 Other skin changes; F15.10 Other stimulant abuse, uncomplicated; W06.XXXA Fall from bed, initial encounter; Y92.003 Bedroom of unspecified non-institutional (private) residence as the place of occurrence of the external cause; Z68.28 Body mass index [BMI] 28.0-28.9, adult; Z87.891 Personal history of nicotine dependence; Z96.641 Presence of right artificial hip joint; Z95.5 Presence of coronary angioplasty implant and graft; Z79.84 Long term (current) use of oral hypoglycemic drugs; Z99.81 Dependence on supplemental oxygen; Z20.822 Contact with and (suspected) exposure to COVID-19
CPT/HCPCS: J3370; Q3014